=== PATIENT | female | born 1995 ===

== ENCOUNTER 2017-05-08 16:03 | Emergency (ER) | payer MEDICAID, OTHER ==
[~2017-05-08] VITALS: Ht 162.6 cm; Wt 73.6 kg
[~2017-05-08 16:03] MED LIST: ALBU17AE22 INH; ASCO500T8 PO; DOCU-41 PO; FERR-74 PO; Hydrocodone/Acetaminophen PO; Ibuprofen PO
[2017-05-08 16:18] VITALS: BP 126/75; PULSE 91; RESP 17; O2SAT 99
--- NOTE | 2017-05-08 16:46 | ED.REPORT ---
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 left ankle pain around noon today. OB is [place], 8 months . Nursing Notes Stated Complaint: LEFT FOOT PAIN Chief Complaint: Extremity Trauma Nursing Notes Reviewed: Yes Allergies: Coded Allergies: No Known Allergies (Unverified Allergy, 01/19/12) Scheduled Albuterol-Expunged Drug, Do Not Renew! (Albuterol-Expunged Drug, Do Not Renew!) 8.5 Gm Aero 8.5 GM INH PRN Ascorbic Acid (Vitamin C) 500 Mg Tablet 500 MG PO DAILY Ferrous Sulfate (Feosol) 325 Mg Tablet 325 MG PO DAILY Scheduled PRN ([Hydrocodone/Acetaminophen]) 1 TAB TABLET 1-2 TAB PO Q4H PRN PRN For Pain ([Ibuprofen]) 800 MG TABLET 800 MG PO Q6H PRN PRN For Pain Docusate Sodium (Colace) 100 Mg Capsule 100 MG PO BID PRN PRN For Constipation General Time Seen by MD: 16:45 Chief Complaint Ankle injury left Hx Obtained From: Patient Past Medical History Past Medical History Reports: Asthma, Diabetes mellitus Past Surgical History IUD removal Smoking History Never Smoker Social History Alcohol Use: Denies alcohol use Drug Use: Denies drug use Occupation lives with boyfriend, no work or school 05/08/2017 Ambulatory Status Independent Review of Systems Basic Review of Systems Eyes: Vision NL, No discharge GI: No abdominal pain, No anorexia, No nausea, No vomiting Allergy / Immune: No allergy Psychiatric: Normal thought content Physical Exam Initial Vital Signs Vital Signs (First) Date Time Temp Pulse Resp B/P Pulse Ox O2 Delivery O2 Flow Rate FiO2 05/08/17 16:18 36.9 91 17 126/75 99 Room Air Initial VS: Reviewed, Vital signs normal General/Constitutional: Well-developed, Well-nourished Head / Eyes: Atraumatic, Normocephalic, PERRL ENT: Mucous membranes moist, Conjunctiva normal, No scleral icterus Neck: Supple, Non-tender, Full range of motion Respiratory: Breath sounds normal, Clear to auscultation, No respiratory distress Cardiovascular: Regular rate & rhythm, Heart sounds normal, Intact distal pulses Abdomen / GI: Soft, Non-tender, No guarding, No rebound, No distention Back: No CVA tenderness Lymphatic: No lymphadenopathy Upper Extremities: Vascular intact, Neuro intact, No swelling, No tenderness Skin: Warm, Dry, No cyanosis Neurologic: Alert, Oriented, Nonfocal Psychiatric: Mood/affect normal, Behavior normal, Normal thought content left ankle with mild swelling, no ecchymosis noted. Excellent range of motion, cap refill less than 3 sec. Sensation intact distally. General/Constitutional: Awake, Alert, No acute distress, Well appearing, Well developed, Well hydrated Respiratory / Chest: Atraumatic, Breath sounds NL, Breath sounds = bilat, No respiratory distress Cardiovascular: Heart rate NL, Regular rhythm, Heart sounds NL Interpretation & Diagnostics X-Ray Interpretation Xray Interpretation: ROCEDURE: X-RAY LEFT FOOT COMPLETE, MINIMUM THREE VIEWS ([id number]) INDICATIONS: LEFT FOOT PAIN, INJURY TECHNIQUE: 3 views of the foot were acquired. COMPARISON: None. FINDINGS: Bones: No fractures or dislocations. No suspicious bony lesions. Soft tissues: No tibiotalar joint effusion. Achilles tendon appears normal. IMPRESSION: No fracture PROCEDURE: X-RAY LEFT ANKLE, MINIMUM THREE VIEWS ([id number]) INDICATIONS: fall ankle pain TECHNIQUE: 3 views of the ankle were acquired. COMPARISON: None. FINDINGS: Bones: No fractures or dislocations. Ankle mortise is normally aligned. No suspicious bony lesions. Soft tissues: Medial soft tissue swelling IMPRESSION: No fracture. Dictated by: Nash Talley M.D. on 05/08/2017 at 17:29 Approved by: Nash Talley M.D. on 05/08/2017 at 17:30 Dictated by: Nash Talley M.D. on 05/08/2017 at 17:31 Approved by: Nash Talley M.D. on 05/08/2017 at 17:34 Re-Eval/Medical Decision Med Decision/Clinical Course 22 year old female presents for evualation of left ankle pain which occured earlier today after jumping out of a brick picker truck. Exam indicates minimal swelling with good range of motion. Patient is 8 months . X-ray does not show any sign of fracture, no sign of compartment syndrome. Patient placed in short walking boot and informed of need to be seen in Family . Discharge & Departure Impression: Primary Impression: Left ankle sprain Encounter type: initial encounter Involved ligament of ankle: unspecified ligament Qualified Code: S93.402A - Sprain of unspecified ligament of left ankle, initial encounter Disposition: Home Patient Instructions: Ankle Sprain (GEN) Additional Instructions: The x-ray does not show any sign of bony damage. Wear the walking boot as needed for comfort. Use tylenol 650 mg up to 3 times a day as needed for pain. Can use hydrocodone 1 at night as needed for severe unrelenting pain. Please follow with your OB as scheduled. Elevate your ankle as much as possible. continue with ice, 15 minutes on and 15 minutes off. Please check in with Family center today after leaving the ER. Referrals: Dora Acosta MD (PCP) EDSupervising Provider for APC: Fabian Daniel MD copies to: Dora Acosta MD, Sue ARNP May 08, 2017 16:46
--- NOTE | 2017-05-08 17:32 | DRSVH ---
PROCEDURE: X-RAY LEFT ANKLE, MINIMUM THREE VIEWS ([id number]) INDICATIONS: fall ankle pain TECHNIQUE: 3 views of the ankle were acquired. COMPARISON: None. FINDINGS: Bones: No fractures or dislocations. Ankle mortise is normally aligned. No suspicious bony lesions . Soft tissues: Medial soft tissue swelling IMPRESSION: No fracture. Dictated by: Nash Talley M.D. on 05/08/2017 at 17:29 Approved by: Nash Talley M.D. on 05/08/2017 at 17:30
--- NOTE | 2017-05-08 17:37 | DRSVH ---
PROCEDURE: X-RAY LEFT FOOT COMPLETE, MINIMUM THREE VIEWS ([id number]) INDICATIONS: LEFT FOOT PAIN, INJURY TECHNIQUE: 3 views of the foot were acquired. COMPARISON: None. FINDINGS: Bones: No fractures or dislocations. No suspicious bony lesions. Soft tissues: No tibiotalar joint effusion. Achilles tendon appears normal. IMPRESSION: No fracture Dictated by: Nash Talley M.D. on 05/08/2017 at 17:31 Approved by: Nash Talley M.D. on 05/08/2017 at 17:34
[2017-05-08 18:45] VITALS: BP 111/75; PULSE 75; RESP 20; O2SAT 99
== END 2017-05-08 18:46 | disposition home or self-care (01) ==
LOC: SED 16:03
DX: O9A.213 Injury, poisoning and certain other consequences of external causes complicating pregnancy, third trimester (principal); S93.492A Sprain of other ligament of left ankle, initial encounter; V58.4XXA Person boarding or alighting a pick-up truck or van injured in noncollision transport accident, initial encounter; Y93.89 Activity, other specified; Y92.019 Unspecified place in single-family (private) house as the place of occurrence of the external cause; Y99.8 Other external cause status; Z3A.32 32 weeks gestation of pregnancy; J45.909 Unspecified asthma, uncomplicated; E11.9 Type 2 diabetes mellitus without complications

== ENCOUNTER 2017-05-18 04:21 | Inpatient (IN) | payer MEDICAID, OTHER ==
[~2017-05-18] VITALS: Ht 162.6 cm; Wt 78.9 kg
[2017-05-18] MEDS ORDERED: Carboprost 250 mCg/mL Inj IM PRN ×2 (04:30→06:15)
[2017-05-18] MEDS ORDERED: Sodium Chloride LOK Flush 10 mL Syringe IVFLUSH PRN (04:30)
[2017-05-18] MEDS ORDERED: Hemorrhage Kit, Post Partum XX ONE ×2 (04:30→06:15)
[2017-05-18] MEDS ORDERED: Ondansetron 2 mg/mL 2 mL Inj IVPUSH PRN ×2 (04:30→05:05)
[2017-05-18] MEDS ORDERED: Oxytocin 10 Unit/mL Inj IM PRN ×2 (04:30→06:15)
[2017-05-18] MEDS ORDERED: Oxytocin 30 Units/500 mL LR 30 UNITS in IV Premix 1 EACH IV PRN ×2 (04:30→06:15)
[2017-05-18] MEDS ORDERED: Methylergonovine 0.2 mg/mL Inj IM PRN ×2 (04:30→06:15)
[2017-05-18] MEDS ORDERED: Lactated Ringer's 1,000 ML IV PRN (04:30)
[2017-05-18] MEDS ORDERED: fentaNYL-PF 50 mCg/mL 2 mL Inj IVPUSH PRN (04:30)
[2017-05-18] MEDS ORDERED: Penicillin G K Inj 5,000,000 UNITS in Dextrose 5% Minibag Plus 100 ML IV ONE (04:30)
[2017-05-18 04:45] LABS: Mean Corpuscular Hemoglobin 27.2 pg (27.0-35.0)
[2017-05-18] MEDS ORDERED: Lactated Ringer's 500 ML IV ONE (05:03)
[2017-05-18] MEDS ORDERED: Lactated Ringer's 1,000 ML IV SCH ×2 (05:03→06:11)
[2017-05-18] MEDS ORDERED: fentaNYL 2 mCg/mL-Bupiv 0.125% 100 ML EPIDURAL SCH (05:05)
[2017-05-18] MEDS ORDERED: Atropine 1 mg/10 mL (Code) Syringe IVPUSH PRN (05:05)
[2017-05-18] MEDS ORDERED: EPHEDrine Sulfate 50 mg/mL Inj IVPUSH PRN (05:05)
--- NOTE | 2017-05-18 05:52 | PCM.HPOB ---
Subjective Date of Service: May 18, 2017 Referring Provider: Admitting Physician: Dora Acosta MD Primary Care Physician: none Attending Physician: Dora Acosta MD Chief Complaint Contractions and her water broke History of Present History of Present Illness 22 y/o -0-2-2 at 38 weeks and 1 day gestation with an CARY of 05/31/2017 by a sure LMP and 27 week ultrasound. She came into labor and delivery with contractions and gross rupture of membranes and was found to be 6 cm and in active labor. Her course is complicated by limited care. She presented to care at 27 weeks gestation and had one visit. She does admit to marijuana use in , but otherwise no significant PMHx. OB History: (5), Para (2), (2), Living (2) Obstetrical Complications: Other (Late to Care) Past Medical History Obstetrical History: 1. 2011 Vacumm assisted vaginal delivery. 2. EAB 3. SAB 4. Medical History: None Hx Alcohol Use: No Hx Substance Use: Yes (Marijuana) Past Family History Living Arrangement: with Family Genetic Screening/Counseling Genetic Screening/Counseling: Negative Genetic Screening: Mental retardation or autism (Autism in relative) Baby father-had child w defect: No Allergy Coded Allergies: No Known Allergies (Unverified Allergy, Unknown, 05/18/17) Exam Vital Signs Reviewed and stable Exam Category 1 FHT Constitutional: Well-developed, Well-nourished HEENT: Atraumatic Heart: Exam Unremarkable Abdomen: Gravid Neurological/Psychiatric: Alert, Oriented X3, Moderate Distress Labs/Diagnostics Labs Laboratory Tests Test 05/18/17 04:35 White Blood Count 13.6th/mm3 (3.8-10.1) Red Blood Count 4.45mil/mm3 (3.90-5.20) Hemoglobin 12.1g/dL (12.0-15.6) Hematocrit 36.5% (35.0-46.0) Mean Corpuscular Volume 82.0fL (81-100) Mean Corpuscular Hemoglobin 27.2pg (27.0-35.0) Mean Corpuscular Hemoglobin Concent 33.2% (32.0-37.0) Red Cell Distribution Width 14.1% (12.3-15.4) Platelet Count 343bil/L (150-400) Maternal Blood Type: O (Positive) Hx Rho(D) Immune Globulin: No Antibody Screen: Negative Group B Strep Results: Positive Previous Infant with GBS: No Rubella: Immune Lab History: Positive for: Hx Chicken Pox (Varicella Immune) Additional Information 1hr GT 126, GC/CZ negative, HIV neg, Hep B neg, Hep C neg, RPR nonreactive, TSH 2.46. OB Intrapartum Assessment/Plan Assessment 38 weeks 1 day gestation late to care in active labor and SROM. Problems: (1) 38 weeks gestation of Plan: Admit for labor management and monitoring. Start PCN for GBS prophylaxis Status: Acute ICD Code: Z3A.38 (2) Limited care, antepartum Plan: Plan for social work consultation due to lack of care and marijuana use in . Status: Acute ICD Code: O09.30 Dora Acosta MD May 18, 2017 05:52
--- NOTE | 2017-05-18 05:53 | PCM.HPANE ---
Patient Data Surgeon Admitting Provider:Dora Acosta MD Attending Provider:Dora Acosta MD Primary Care Physician:Dora Acosta MD Other Provider: Reason for Visit Term Labor Check TERM LABOR CHECK Ht/WT & BMI Body Mass Index Allergies Coded Allergies: No Known Allergies (Unverified Allergy, Unknown, 05/18/17) Past Anesthesia History Anesthesia History: Denies:: Abnormal Airway, Anesthesia Reactions, Difficult Intubation, Fam Anesthesia Reaction, Fam Malignant Hypertherm, Malignant Hyperthermia Diabetes History Hx Diabetes?: No Medications Hypertension Medication: No Home Meds Incl Beta Justin: No Active Scripts Docusate Sodium (Colace)100 Mg [id number] Mg PO BID PRN For Constipation #60 CAPSULE Ref 0 Prov:ChadArmando Rose DO 07/22/14 [Ibuprofen] (Motrin)800 MG TABLET No Conflict [id number] Mg PO Q6H PRN For Pain Prov:Armando Bonilla DO 07/22/14 [Hydrocodone/Acetaminophen] (Vicodin 5/325 mg)1 TAB TABLET No Conflict Check1-2 Tab PO Q4H PRN For Pain Prov:Armando Bonilla DO 07/22/14 Ferrous Sulfate (Feosol)325 Mg [id number] Mg PO DAILY #90 TABLET Ref 0 Prov:ChadArmando Rose DO 07/22/14 Ascorbic Acid (Vitamin C)500 Mg Eyiohp243 Mg PO DAILY 90 Days Ref 0 Prov:Armando Bonilla DO 07/22/14 Reported Medications Albuterol-Expunged Drug, Do Not Renew! 8.5 Gm Aero8.5 Gm INH PRN 01/19/12 History History of ENT Problems?: No HEENT History: Denies:: Abnormal Airway Cataracts Difficult Intubation Dysphagia Glaucoma Hearing Problem Sinus Problem TMJ Denture Type: None Teeth Condition: Within Normal Limits Hx of Heart Problems?: No Cardiovascular History: Denies:: Congestive Heart Failure Hypertension Hx of Respiratory Problem?: No Respiratory History: Denies:: Tuberculosis Hx Neurologic Problems?: No Hx of GI Problems?: No Hx of Problems?: No HX of Peritoneal Dialysis: No Female Hx: Positive for:: Currently Hx Musculoskeletal Problems?: No Hx Surgeries?: No Hx Diabetes: No Hx Alcohol Use: NoHx Substance Use: No Smoking Status: Never Smoker Stop/Bang Risk Assessment Category Category 1A: Patient has history of documented sleep apnea, and HAS NOT received any narcotic, sedative or anesthesia administration during this stay. Category 1B: Patient has history of documented sleep apnea, and HAS received any narcotic , sedative or anesthesia administration during this stay Category 2: Patient has SUSPECTED Obstructive Sleep Apnea, and HAS received any narcotic , sedative or anesthesia administration during this stay. Category 3: Patient has SUSPECTED Obstructive Sleep Apnea and HAS NOT received narcotic, sedative or anesthesia administration during this stay. Category 4: Outpatient in Procedural Areas with known sleep apnea or who screen positive for High Risk via the STOP/BANG questionnaire. Exam Exam General Appearance: Alert, Oriented X3 HEENT/AIRWAY: MP 2, Neck Movement (FROM) Lungs: Clear to Auscultation, Clear to Percussion Heart: Exam Unremarkable, Regular Rate/Rhythm Meds/Labs/Diagnostics Admission Meds Current Medications Penicillin G Potassium/ Dextrose/Water (Pfizerpen Inj/ D5W Minibag Plus) 100 ml @ 240 mls/hr ONCE ONCE IV Last administered on 05/18/17t 04:48; Start 05/18/17 at 04:30; Stop 05/18/17 at 04:54; Status DC Labs Test 05/18/17 04:35 White Blood Count 13.6th/mm3 (3.8-10.1) Red Blood Count 4.45mil/mm3 (3.90-5.20) Hemoglobin 12.1g/dL (12.0-15.6) Hematocrit 36.5% (35.0-46.0) Mean Corpuscular Volume 82.0fL (81-100) Mean Corpuscular Hemoglobin 27.2pg (27.0-35.0) Mean Corpuscular Hemoglobin Concent 33.2% (32.0-37.0) Red Cell Distribution Width 14.1% (12.3-15.4) Platelet Count 343bil/L (150-400) Plan Impression Patient chart reviewed, patient interviewed and anesthestic plan with risks, benefits, and alternatives discussed, and informed consent obtained. ASA Physical Status: ASA2 Mod Systemic Disease Anesthetic Plan: Epidural Bene/Risks/Altern/Consents: Yes HP Complete Prior to Induction: Yes Armando Bae MD May 18, 2017 05:02
--- NOTE | 2017-05-18 06:10 | PCM.OBVAG ---
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 Provider and Twine Reeling Machine Operator: Dora Acosta MD Indication for Procedure Indication for Procedure 22 y/o -0-2-2 at 38 weeks and 1 day gestation with an CARY of 05/31/2017 by a sure LMP and 27 week ultrasound Induction: Active labor, SROM, Progressed normally through labor Findings Obstetrical Findings: (Female), Weight ( 3406 grams), Presentation (OA), 1 minute (9), 5 minutes (9), Placenta (Intact/ Normal), Perineal Laceration (none) Analgesia/Medications Obstetrical Anesthesia: Epidural Procedure Details Procedure Details Patient rapidly progressed to complete at 0530hrs and delivered a female infant per at 05:36. The placenta was delivered intact with a three vessel cord at 0542. There were no lacerations appreciated on exam. IV Intake/Output Catheters: None Blood Loss & Administration Estimated Blood Loss: 200 Blood Admin during procedure: No Post Procedure Plan Post Procedure Plan routine pp care Post delivery Condition: Mom stable Dora Acosta MD May 18, 2017 06:10
[2017-05-18] MEDS ORDERED: HYDROcodone-APAP 5-325 mg Tablet PO PRN (06:15)
[2017-05-18] MEDS ORDERED: Witch Hazel-Glycerin Pads TOPICAL PRN (06:15)
[2017-05-18] MEDS ORDERED: LANOlin HPA 7 Gm Ointment TOPICAL PRN (06:15)
[2017-05-18] MEDS ORDERED: Benzocaine (Dermoplast) 20% 60 Gm Spray TOPICAL PRN (06:15)
[2017-05-18] MEDS ORDERED: Penicillin G K Inj 3,000,000 UNITS in IV Premix 1 EACH IV SCH (08:30)
[2017-05-18] MEDS ORDERED: Sodium Chloride LOK Flush 10 mL Syringe IVFLUSH SCH (08:30)
[2017-05-18] MEDS: Ascorbic Acid 500 mg Tablet PO SCH ×2 (15:07→22:52)
[2017-05-19] MEDS: Ascorbic Acid 500 mg Tablet PO SCH (08:20)
--- NOTE | 2017-05-19 09:08 | PCM.DC.OB ---
Obstetrical Discharge Summary Date of Service May 19, 2017 Date of hospital admission May 18, 2017 at 04:24 Date of Discharge: May 19, 2017 Providers Admitting Physician: Dora Acosta MD Primary Care Physician: Dora Acosta MD Attending Physician: Dora Acosta MD Problems: (1) 38 weeks gestation of Status: Resolved ICD Code: Z3A.38 (2) Limited care, antepartum Status: Resolved ICD Code: O09.30 Brief History and Physical: 22 y/o now at 38 weeks and 1 day gestation with an CARY of 05/31/2017 by a sure LMP and 27 week ultrasound. She came into labor and delivery with contractions and gross rupture of membranes and was found to be 6 cm and in active labor. Her course is complicated by limited care. She presented to care at 27 weeks gestation and had one visit. She does admit to marijuana use in , but otherwise no significant PMHx. Patient states she has had a mild headache, some back pain but is otherwise doing fine. Vitals are within normal limits. Temperature of 36.7 and blood pressure of 114/ 68 was noted. Fundus was firm and at the level of the umbilicus. Abdomen is nontender there is light vaginal bleeding. Extremities showed minimal edema below the ankle. Hospital Course: 22-year-old now presented to [facility] on 05/18[facility]17 with contractions and gross rupture of membranes and was found to be 6 cm in active labor. Her course is complicated by limited care. She presented to care at 27 weeks gestation and had one visit. She does admit to marijuana use in and was GBS positive. She received 1 dose of penicillin. She rapidly progressed to complete at 0530hrs and delivered a female infant per at 05:36. The placenta was delivered intact with a three vessel cord at 0542. There were no lacerations appreciated on exam. At the time of discharge the patient is tolerating feedings, has had a bowel movement, urinating with out pain, has minimal lochia, is ambulating around the room, pain is well controlled, is breast feeding, mood is stable and is comfortable being discharged. ([Hydrocodone/Acetaminophen]) 1 TAB TABLET 1-2 TAB PO Q4H PRN PRN For Pain Prescribed by: LANA SPANGLER DO ([Ibuprofen]) 800 MG TABLET 800 MG PO Q6H PRN PRN For Pain Prescribed by: SANDRA CIFUENTES DO Albuterol-Expunged Drug, Do Not Renew! (Albuterol-Expunged Drug, Do Not Renew!) 8.5 Gm Aero 8.5 GM INH PRN (Reported) Ascorbic Acid (Vitamin C) 500 Mg Tablet 500 MG PO DAILY Prescribed by: LANA SPANGLER DO Docusate Sodium (Colace) 100 Mg Capsule 100 MG PO BID PRN PRN For Constipation Prescribed by: LANA SPANGLER DO Ferrous Sulfate (Feosol) 325 Mg Tablet 325 MG PO DAILY Prescribed by: LANA SPANGLER DO Disposition Home Follow-up plan [facility] Discharge Diet: No restrictions Discharge Activity-General: No restrictions, Pelvic Rest for 6 weeks, Try not to overdue, Be up and about, Balance rest and activity, Activity as pain allows , Activity as energy allows Sandra Cifuentes DO May 19, 2017 09:07
--- NOTE | 2017-05-19 09:15 | PCM.DIOB ---
Obstetrical Disch Instruction Date of Service: May 19, 2017 Dates of Hospitalization Date of Hospital Admission May 18, 2017 at 04:24 Providers Admitting Physician: Dora Acosta MD Primary Care Physician: Dora Acosta MD Attending Physician: Dora Acosta MD Discharge Diagnosis Discharge Diagnosis Vaginal delivery Spontaneous rupture of membranes Problems: (1) 38 weeks gestation of Status: Resolved ICD Code: Z3A.38 (2) Limited care, antepartum Status: Resolved ICD Code: O09.30 Diet Discharge Diet: No restrictions Activity Discharge Activity-General: Pelvic Rest for 6 weeks, Be up and about, Balance rest and activity, Activity as pain allows, Activity as energy allows Dressing and Incisional Care Hygiene: May shower, NO bathtub, hot tub or whirlpool Additional Instructions Discharge Instructions Continue your vitamin. Be sure to follow up in 2 weeks and then again in 6 weeks at [facility]. Pelvic rest for 6 weeks (nothing per vagina including intercourse, tampons) If you have a fever greater than 100.4, please call Women's Health. There is always someone document control supervisor to talk to. If you have an increase in bleeding, call Women's Health. If you have a lot of bleeding suddenly, especially if you have symptoms of dizziness & weakness with it, get emergency help. If you start experiencing extreme depression, especially if you feel that you are a danger to yourself or your family, seek emergency help. You have been through a lot -- BE SURE TO TAKE CARE OF YOURSELF. Follow Up Plan Follow Up Plan 6 weeks Call your provider for: Fever or Chills, Shortness of breath, Heavy vaginal bleeding, Heavy bleeding, Epigastric pain, Excessive constipation, Vaginal discomfort, Red painful breasts Sandra Syed DO May 19, 2017 09:15
[2017-05-19] MEDS ORDERED: Ibuprofen PO (09:17)
[2017-05-19] MEDS ORDERED: DOCU-41 PO (10:47)
[2017-05-19] MEDS ORDERED: TdaP Vaccine 0.5 mL Inj IM ONE (11:20)
[2017-05-19 13:56] VITALS: BP 108/53; PULSE 77; RESP 18
--- NOTE | 2017-05-20 15:10 | NUR ---
Family Assessment Date/time: 05/20/2017 MOB and FOB: MOB is Blossom Juarez, FOB is Tutu Sawyer Baby: Baby Girl Ye Juarez Reason for SW consult: VIOLET was late to care, only one visit during and also was positive for Marijuana. VIOLET does admit to Marijuana use one month ago during her 22st birthday. Current living situation: VIOLET lives with FOIsaias, mother in law and her two other children (Boys age 3 and 5) in a house in [place]. VIOLET works and goes to school, VIOLET is able to take the next 3 months off work. Previous children/in who's care/CPS involvement: MOB denies any previous CPS involvement. Substance abuse hx: MOB denies any substance use besides Marijuana. Mental Health hx and current issues: VIOLET denies any current mental health struggles. VIOLET did identify that after her first pregancy when she was 17 years old she struggled with post depression due to loss of social supports at school, having to drop out of school and other stressors on top of the normal stresses of being a new mom. VIOLET explained that she followed up with her PCP and these symptoms were managed and were not a concern after a few months. MOB denies any other recent struggles with mental health and denies any current symptoms, suicidal ideation or thoughts of harming herself or others. Post Depression information provided to VIOLET to reference and MOB confirmed that she will follow up with her PCP if she starts to experience symptoms again. 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 FOB and Mother in law are also working. DV/abuse hx: Pt denies. Pt states she feels safe at home. Supports: MOB primary supports are FOB and mother in law. Pt states family in the community are very supportive and are able to help out with the kids when needed. Special healthcare needs/disabilities for baby: N/A Involvement/Referral to [facility]/community programs: MOB already involved in WIC. [facility] information provided. VIOLET denies any concerns with meeting her or her Children's needs at this time and they are comfortable. Other: After further conversation, VIOLET explained that baby was a surprise and she did not find out she was until later on in her . VIOLET found out about her while receiving care at the [facility] through [place], was prescribed vitamins which she states she took. MOB states she followed up with her PCP Dora Acosta MD through [facility] later in her (27 weeks) which was her only other official appointment. MOB states she is planning on having baby's crusher and blender operator through [facility]. Other Pediatricians in the community who accept [facility] has been provided just in case. Assessment: Due to positive marijuana screening for MOB, and MOB admits to marijuana use during CPS referral has been made per hospital policy. Intake number: [id number]. Per CPS intake, this referral was screened out and accepted as informational only. Per RN, there are no additional concerns for the family. MOB and family appropriate with baby and bonding. MOB seems excited for baby and "the first baby girl in the family." Disposition/plan: Per MD MOB and baby are ready for discharge. PROCUREMENT REPRESENTATIVE provided MOB with resource packet including information on Post depression and outpt counselors if needed, pediatricians in the community and information on [facility] and other community resources should any needs arise after MOB and baby are discharged home. CPS referral screened out. No further concerns from MD dianetic counselor. MOB and MOB family denies any other needs. No other discharge needs identified. CHAITANYA Esparza
== END 2017-05-19 14:30 | disposition home or self-care (01) | DRG 560 ==
LOC: FBCO 04:21 → FBC 04:24
PROVIDERS: ADMIT Obstetrics & Gynecology; ATTEND Obstetrics & Gynecology
PROC: 10E0XZZ Delivery of Products of Conception, External Approach (ICD-10-PCS; principal; 2017-05-18)
DX: O99.824 Streptococcus B carrier state complicating childbirth (principal); O99.324 Drug use complicating childbirth; F12.90 Cannabis use, unspecified, uncomplicated; Z37.0 Single live birth; Z3A.38 38 weeks gestation of pregnancy